=== PATIENT | female | born 1995 | race Caucasian/White ===

== ENCOUNTER 2021-06-06 23:33 | Emergency (ER) | payer OTHER ==
[2021-06-06 23:36] VITALS: PULSE 92
[2021-06-07 00:04] LABS: ANION GAP 10.4 meq/L (7-15); CHLORIDE,CL 104 mmol/L (98-107); SODIUM,NA 142 mmol/L (136-145)
[2021-06-07 00:09] LABS: PTT,PARTIAL THROMBOPLSTIN TIME 24.9 SEC (24.5-32.8)
--- NOTE | 2021-06-07 00:16 | EDM.PDOC ---
ED HPI GENERAL MEDICAL PROBLEM - General Chief Complaint: ENT Problem Stated Complaint: BRUISING, EPISTAXIS Time Seen by Provider: 06/06/21 23:38 Source of Information: Reports: Patient - History of Present Illness INITIAL COMMENTS - FREE TEXT/NARRATIVE: Candy is a 25 y/o female who comes to the ER reporting excessive bruising the last week. She denies having this happen before, but she reports "dime-sized" bruises to both legs. Denies having this happen before. Then tonight about 2 hours ago, she developed a nosebleed and was passing clots from the left nostril. She reports the bleeding stopped just prior to coming to the ER. Denies previous issues with epistaxis. - Related Data Allergies Allergy/AdvReac Type Severity Reaction Status Date / Time azithromycin Allergy Tachycardia Verified 06/06/21 23:55 Home Meds: Home Meds LORazepam [Ativan] 1 mg PO BID PRN 06/06/21 [History] Lisdexamfetamine [Vyvanse] 30 mg PO DAILY 06/06/21 [History] Prazosin HCl [Prazosin] 6 mg PO BEDTIME 06/06/21 [History] Social & Family History - Tobacco Use Tobacco Use Status *Q: Never Tobacco User Second Hand Smoke Exposure: No - Caffeine Use Caffeine Use: Reports: Soda - Recreational Drug Use Recreational Drug Use: No Review of Systems - Review of Systems Review Of Systems: See Below Constitutional: Reports: No Symptoms Eyes: Reports: No Symptoms Ears: Reports: No Symptoms Nose: Reports: Clots, Epistaxis Mouth/Throat: Reports: No Symptoms Respiratory: Reports: No Symptoms Cardiovascular: Reports: No Symptoms GI/Abdominal: Reports: No Symptoms Genitourinary: Reports: No Symptoms Musculoskeletal: Reports: No Symptoms Skin: Reports: Bruising Neurological: Reports: No Symptoms Psychiatric: Reports: No Symptoms ED EXAM, GENERAL - Physical Exam Exam: See Below General Appearance: Alert, WD/WN, No Apparent Distress (Adult female\\) Eye Exam: Bilateral Eye: PERRL Ears: Normal External Exam, Normal Canal, Hearing Grossly Normal, Normal TMs Nose: Normal Inspection, Normal Mucosa, No Blood, Other (No evidence of bleeding or any injury to nostrils noted) Throat/Mouth: Normal Inspection, Normal Lips, Normal Oropharynx, Normal Voice, Other (No evidence of any dried blood or blood noted in the posterior pharyngeal region as would be expected with report of severe epistaxis.) Head: Atraumatic, Normocephalic Neck: Supple Respiratory/Chest: No Respiratory Distress, Lungs Clear, Chest Non-Tender Cardiovascular: Regular Rate, Rhythm GI/Abdominal: Normal Bowel Sounds, Soft (Female) Exam: Deferred Rectal (Female) Exam: Deferred Back Exam: Normal Inspection, Full Range of Motion Extremities: Normal Inspection, Normal Range of Motion, Normal Capillary Refill Neurological: Alert, Oriented, CN II-XII Intact, No Motor/Sensory Deficits Psychiatric: Normal Affect Skin Exam: Warm, Dry, Intact, Normal Color (note a few light dime-sized bruises to legs, but no petchiae or large bruised regions noted), No Rash, Ecchymosis Lymphatic: No Adenopathy Course - Vital Signs Text/Narrative:: [id number] The patient was seen by the FIELD OPERATOR. Labs ordered. No evidence of epistaxis was noted on clinical exam. Bruises minimal on exam. 0030 Lab reviewed. Plts adequate and actually in excess. Lab discussed with patient. Possible med related, Prazosin can cause epistaxis, but will advise she observe and discussed with prescriber. Questions answered, reassurance given. She was given discharge instructions and left the ER in stable condition. Last Recorded V/S: Last Vital Signs Temp 36.5 C 06/06/21 23:35 Pulse 92 06/06/21 23:35 Resp 12 06/06/21 23:35 BP 130/74 06/06/21 23:35 Pulse Ox 100 06/06/21 23:35 - Orders/Labs/Meds Orders: Active Orders 24 hr Category Date Time Status COMPREHENSIVE METABOLIC PN,CMP [CHEM] Stat Lab 06/06/21 23:40 Received INR,PT,PROTHROMBIN TIME [COAG] Stat Lab 06/06/21 23:40 Received PTT,PARTIAL THROMBOPLSTIN TIME [COAG] Stat Lab 06/06/21 23:40 Received Labs: Laboratory Tests 06/06/21 Range/Units 23:40 WBC 10.4 H (4.0-10.2) K/uL RBC 4.92 (3.77-5.09) M/uL Hgb 15.2 (11.7-15.5) g/dL Hct 44.9 (34.0-46.0) % MCV 91.3 (84.0-98.0) fL MCH 30.9 (28.2-33.3) pg MCHC 33.9 (31.7-36.0) g/dL RDW 12.7 (11.2-14.1) % Plt Count 367 H (150-350) K/uL Neut % (Auto) 71.2 (45.0-80.0) % Lymph % (Auto) 22.5 (10.0-50.0) % [place] % (Auto) 5.1 (2.0-14.0) % Eos % (Auto) 0.8 (0.0-5.0) % Baso % (Auto) 0.4 (0.0-2.0) % Neut # (Auto) 7.40 H (1.40-7.00) K/uL Lymph # (Auto) 2.34 (0.50-3.50) K/uL [place] # (Auto) 0.53 (0.00-1.00) K/uL Eos # (Auto) 0.08 (0.00-0.50) K/uL Baso # (Auto) 0.04 (0.00-0.20) K/uL Departure - Departure Time of Disposition: 00:23 Disposition: Home, Self-Care 01 Condition: Good Clinical Impression: Bruising, Epistaxis, Elevated TSH - Discharge Information *PRESCRIPTION DRUG MONITORING PROGRAM REVIEWED*: Not Applicable *COPY OF PRESCRIPTION DRUG MONITORING REPORT IN PATIENT NAE: Not Applicable Instructions: Nosebleed, Adult, Thyroid-Stimulating Hormone Test Additional Instructions: -Monitor for further sx and report. -Follow up with your PCP for further concerns. Make an appt to address your elevated. You need additional labs done. -Return to ER as needed Sepsis Event Note (ED) - Evaluation Sepsis Screening Result: No Definite Risk - Focused Exam Vital Signs: Vital Signs Temp Pulse Resp BP Pulse Ox 06/06/21 23:35 36.5 C 92 12 130/74 100 - Problem List & Annotations (1) Bruising SNOMED Code(s): 402106056 Code(s): T14.8XXA - OTHER INJURY OF UNSPECIFIED BODY REGION, INITIAL ENCOUNTER Status: Acute Current Visit: Yes Annotation/Comment:: Lab negative tonight. Advise monitoring for more sx and FU with PCP. (2) Epistaxis SNOMED Code(s): 929342244 Code(s): R04.0 - EPISTAXIS Status: Acute Current Visit: Yes Annotation/Comment:: Resolved on arrival to ED. No interventions needed. (3) Elevated TSH SNOMED Code(s): 314724931 Code(s): R79.89 - OTHER SPECIFIED ABNORMAL FINDINGS OF BLOOD CHEMISTRY Status: Acute Current Visit: Yes Annotation/Comment:: TSH=9.793. Will have pt see her PCP/Endo for further labs and tx. - Problem List Review Problem List Initiated/Reviewed/Updated: Yes - My Orders Last 24 Hours: My Active Orders 06/06/21 23:40 COMPREHENSIVE METABOLIC PN,CMP [CHEM] Stat INR,PT,PROTHROMBIN TIME [COAG] Stat PTT,PARTIAL THROMBOPLSTIN TIME [COAG] Stat - Assessment/Plan Last 24 Hours: My Active Orders 06/06/21 23:40 COMPREHENSIVE METABOLIC PN,CMP [CHEM] Stat INR,PT,PROTHROMBIN TIME [COAG] Stat PTT,PARTIAL THROMBOPLSTIN TIME [COAG] Stat Plan: See Above
[2021-06-07 00:27] VITALS: BP 110/62
== END 2021-06-07 00:40 | disposition home or self-care (01) ==
LOC: LL.ED 23:33
DX: S80.12XA Contusion of left lower leg, initial encounter (principal); S80.11XA Contusion of right lower leg, initial encounter; R04.0 Epistaxis; Z88.1 Allergy status to other antibiotic agents; X58.XXXA Exposure to other specified factors, initial encounter
CPT/HCPCS: 36415; 80053; 84443; 85025; 85610; 85730; 99283